=== PATIENT | male | born 1960 | race Caucasian/White ===

== ENCOUNTER 2025-09-19 15:38 | Observation (INO) ==
[2025-09-19 16:09] LABS: Hematocrit (blood only) 46.5 % (42.0-52.0); Hemoglobin 16.2 g/dL (14.0-18.0); Immature Granulocytes # (auto) 0.03 K/uL (0.01-0.20); Immature Granulocytes % (auto) 0.3 %; Mean Corpuscular Hemoglobin 32.1 pg (25.0-34.0); Mean Corpuscular Volume 92.3 fL (80.0-100.0); Platelet Count 281 K/uL (130-400); RDW Standard Deviation 49.2 fL (36.4-46.3); Red Blood Count 5.04 M/uL (4.70-6.10); White Blood Count 10.36 K/ul (4.8-10.8)
[2025-09-19] MEDS: OPTIRAY 320 100ml IV ONE (16:14)
[2025-09-19 16:25] LABS: Alanine Aminotransferase 50.0 U/L (7-52); Albumin Globulin Ratio 1.3 (0.9-2); Albumin Level 4.4 gm/dl (3.4-5.0); Alkaline Phosphatase 53.0 U/L (34-104); Anion Gap 11.0 (3-11); Bilirubin,Total 0.8 mg/dl (0.2-1.0); Blood Urea Nitrogen 13.0 mg/dl (6-23); Calcium 9.8 mg/dl (8.6-10.3); Carbon Dioxide 27.0 mmol/L (21-32); Chloride 97.0 mmol/L (98-107); Creatinine Clr Calc Pharmacy 95.1 ml/min; Globulin 3.5 gm/dl (2.5-4.0); Glucose 105.0 mg/dl (70-99(Fasting)); Potassium 3.6 mmol/L (3.5-5.1); Sodium 135.0 mmol/L (136-145); Total Protein 7.9 gm/dl (6.0-8.3)
--- NOTE | 2025-09-19 16:57 | CT Scan Report ---
EXAMINATION: CT of the abdomen and pelvis performed after the administration of IV contrast TECHNIQUE: Helical CT images from the lung bases through the symphysis pubis were obtained with contrast. Coronal and sagittal reformatted images were generated at a workstation for further assessment. Dose reduction techniques were achieved by using automatic exposure control and/or adjustment of mA and/or kV according to patient size and/or use of iterative reconstruction technique. COMPARISON: None HISTORY: Abdominal pain FINDINGS: Lower chest: No consolidation. No pleural effusion or pneumothorax. Liver: No suspicious liver lesions. Portal veins appear patent. Gallbladder: No gallstones. No evidence of acute cholecystitis. Spleen: Normal size. Pancreas: No suspicious pancreatic lesions. The pancreatic duct is not dilated. Adrenal glands: No adrenal nodules. Kidneys: No hydronephrosis or obstructing renal stones. Simple right renal cysts. There is some scarring at the superior pole of the left kidney. Bladder / Pelvic organs: Unremarkable. Bowel: No bowel obstruction. No abnormal bowel wall thickening. The appendix is unremarkable. Several, nondilated fluid-filled loops of small bowel throughout the left abdomen and lower midline abdomen. Lymph nodes: No retroperitoneal, mesenteric, or pelvic lymphadenopathy. Peritoneum / Retroperitoneum: No free fluid or air within the abdomen. Vessels: No infrarenal aortic aneurysm. Moderate aortoiliac atherosclerosis. Bones and soft tissues: No suspicious lesion in the bones. IMPRESSION: Several nondilated fluid-filled loops of small bowel primarily in the left and lower abdomen, suggesting enteritis. No other acute findings of the abdomen. Electronically signed by Kb Cannon 09-19-2025 4:57 PM
--- NOTE | 2025-09-19 17:11 | CT Scan Report ---
Clinical history: Left-sided pain after fall Technique: Axial computed tomography images were obtained of the chest after the administration of intravenous contrast No prior examination is available for comparison Findings: There is dependent subsegmental atelectasis in both lower lobes. There is mild emphysema. There is no pleural effusion or pneumothorax. There is no sign of pulmonary fibrosis or other diffuse interstitial process. No endobronchial lesion is seen There is no mediastinal, hilar, or axillary adenopathy. The thoracic aorta appears unremarkable with no sign of aneurysm or dissection. There is no pericardial effusion. There is coronary atherosclerosis The visualized upper abdomen appears unremarkable. There are acute nondisplaced fractures of the left posterior eighth and ninth ribs. No focal osseous lesion is evident Impression: 1. Acute fractures of the left eighth and ninth ribs 2. No pneumothorax 3. Mild emphysema ACT 112: Positive. There are findings on this exam that require communication between the performing entity and the patient following Patient Test Result Information Act ([place] ACT 112) guidelines. Electronically signed by Tyler Soto 09-19-2025 5:10 PM
[2025-09-19] MEDS: KETOROLAC TROMETHAMINE 15 MG/ML VIAL IV ONE (18:13)
--- NOTE | 2025-09-19 18:24 | History & Physical Report ---
Date of Service September 19, 2025 Assessment & Plan (1) Rib fractures: (2) Hip pain, acute: (3) HTN (hypertension), benign: (4) Carotid artery stenosis: Plan This patient is a 65-year-old male with a history of HTN, carotid artery stenosis, current smoker, emphysema, multiple sclerosis not on treatment, chronic diarrhea, chronic urinary urgency/frequency/nocturia, who presents after having a mechanical fall the day before admission onto his back. He slipped on the ramp into his house on ice and his feet went up into the air and he landed flat on his back. He did not have a head injury and did not lose consciousness. He had severe pain in his left lateral hip and left side of the chest, and was found to have acute fractures of the left posterior 8th and 9th ribs without pneumothorax but with subsegmental atelectasis in bilateral lower lobes. A CT of the abdomen/pelvis showed several nondilated fluid-filled loops of small bowel throughout the left abdomen and lower mid abdomen but no acute issues at the site of the hip pain. He is having difficulty ambulating due to the left hip pain and splinting secondary to pain from the rib fractures. He is admitted for intractable pain from left-sided rib fractures and left hip pain with ambulatory dysfunction. #Mechanical fall/left sided rib fractures/left hip pain/ambulatory dysfunction- no fracture seen of the left hip or pelvis-likely deep contusion - Admit to medical floor with telemetry due to rib fractures - Incentive spirometry - Pain control with IV Dilaudid, lidocaine patch, Tylenol, Toradol - PT/OT consults - Ice to the area of pain #HTN/ANSHUL-blood pressures elevated on arrival and became lower after receiving IV fentanyl. - Hold home HCTZ and lisinopril for now - Continue home aspirin and Plavix #Current smoker/emphysema-heavy smoking history - Encourage cessation - Nicotine patch can be ordered if needed #Alcohol use disorder-patient reports drinking anywhere from 4 beers to 25 beers every day of the week but denies any history of withdrawal when he stops drinking for more than a few days. -AWSS protocol, Valium as needed orally - Start thiamine 100 mg p.o. once daily, folic acid 1 mg p.o. once daily, and multivitamin 1 tablet p.o. once daily - Encourage cessation #Urinary frequency/nocturia-longstanding problem. He has not really talked to his doctor about this ever - Start tamsulosin - Recommend follow-up with PCP or urology as an outpatient #Chronic diarrhea-longstanding issue, has not had a colonoscopy in about 10 year s. Had liquid stool and possible enteritis seen on CT abdomen/pelvis. Could be related to heavy alcohol use - Recommend outpatient follow-up with GI for colonoscopy - Recommend alcohol cessation - Can trial cholestyramine or fiber-Will discuss with patient #Multiple sclerosis-he has not been on treatment for this in several years and is trying to get in to see a new neurologist. He has chronic lower extremity weakness - PT/OT ordered - Follow-up with neurology as an outpatient DVT prophylaxis-SCDs, Lovenox SQ Disposition-admit to telemetry unit History of Present Illness Chief Complaint: Fall, chest pain, hip pain Primary Care Provider: Curtis Blackburn This patient is a 65-year-old male with a history of HTN, carotid artery stenosis, current smoker, emphysema, multiple sclerosis not on treatment, chronic diarrhea, chronic urinary urgency/frequency/nocturia Roxi, who presents after having a fall yesterday onto his back. He slipped on the ramp into his house on ice and his feet went up into the air and he landed flat on his back. He did not have a head injury and did not lose consciousness. He had severe pain in his left lateral hip and left side of the chest, but was able to get up. After that, he walked 60 [address] to the [id number] next-door to his house and drank 3 or 4 beers. He was able to get back home with severe pain and when he w jovan up this morning, continued to have pain and had his father bring him to the hospital. He was an injury alert in the ED due to the fall and he is on aspirin and Plavix. Since then, he has had left hip pain and left lateral chest wall pain with difficulty taking deep breaths due to pain. In the ED, he had a chest CT which showed acute fractures of the left 8th and 9th ribs without pneumothora x but with subsegmental atelectasis in bilateral lower lobes. A CT of the abdomen/pelvis showed several nondilated fluid-filled loops of small bowel throughout the left abdomen and lower mid abdomen but no acute issues at the site of the hip pain. He was given IV fentanyl, IV Toradol. He is having difficulty ambulating due to the left hip pain and splinting secondary to pain from the rib fractures. He will be admitted for intractable pain from left-sided rib fractures and left hip pain with ambulatory dysfunction. Allergies Allergy/AdvReac Type Severity Reaction Status Date / Time No Known Allergies Allergy Verified 09/19/25 17:52 Home Medications Medication Instructions Recorded Confirmed Type aspirin 81 mg tablet,delayed 81 mg PO QAM 09/19/25 09/19/25 History release clopidogrel 75 mg tablet 75 mg PO QPM 09/19/25 09/19/25 History hydrochlorothiazide 25 mg tablet 25 mg PO QAM 09/19/25 09/19/25 History lisinopril 20 mg tablet 20 mg PO QAM 09/19/25 09/19/25 History Past Med/Surg History Problem List (Updated 09/19/25 @ 19:52 by Chen Aguiar MD) Hip pain, acute Rib fractures Medical History (Updated 09/19/25 @ 19:52 by Chen Aguiar MD) Nocturia Chronic diarrhea Emphysema lung Current smoker Carotid artery stenosis Multiple sclerosis HTN (hypertension), benign Surgical History (Updated 09/19/25 @ 19:53 by Chen Aguiar MD) H/O uvulectomy History of tonsillectomy H/O arthroscopy of knee Family History (Updated 09/19/25 @ 19:53 by Chen Aguiar MD) Father Stroke Social History (Updated 09/19/25 @ 19:55 by Chen Aguiar MD) Smoking Status: Current every day smoker Tobacco Type: Cigarettes and E-cigarettes / Vaping packs per day: 0.5; Cigarettes Per Day: Previously smoked 3 packs/day; Hx Alcohol Use: Yes Alcohol type: beer Alcohol Intake Frequency: 4 or More x per/Week Alcohol Intake Frequency Comment: Drinks 4 to 25 beers per day Hx Substance Use: No Preferred Language: Lao marital status: Current Living Situation: Alone current occupational status: disabled current occupation: Previously worked on the [employer], now applying for disability How many Children do You have: 2 Feels Safe at Home: Yes Review of Systems Review of Systems: All systems reviewed & are unremarkable except as noted in HPI & below No fevers or chills, no chest pain shortness of breath, no nausea or vomiting. Has urinary urgency and frequency and nocturia every day chronically. Has chronic loose stools. No blood in the stool. No recent cold symptoms or cough. Physical Exam Constitutional: WD/WN, vitals as above Eyes: PERRL, conjunctivae normal, anicteric sclerae ENMT: external ear and nose normal, oropharynx normal Neck: trachea midline, no thyromegaly Respiratory: normal respiratory effort; no cough Auscultation: + wheezes (Bilateral); no crackles and no rhonchi Cardiovascular: RRR, no murmur, no edema Chest (Breasts): Chest: normal inspection of chest Gastrointestinal (Abdomen): normal bowel sounds, soft, nontender, no hepatosplenomegaly Musculoskeletal: Extremities: extremities normal to inspection; no cyanosis and no clubbing Positive TTP over left lateral hip and PSIS, full range of motion of left hip, negative pain with logroll, able to flex and extend at the hip Positive TTP over posterior ribs Skin: + rash (Dry skin and some excoriations o n legs bilaterally) Neurologic: moves all extremities and awake; no focal motor deficits Psychiatric: A+Ox3, euthymic affect Lymphatic: no lymphedema Results & Data Results & Data Vital Signs (Past 12 Hours) Vital Signs Temp Pulse Pulse Resp BP BP Pulse Ox 09/19/25 18:00 84 20 96/65 L 98 09/19/25 17:00 68 20 133/89 95 09/19/25 16:30 76 18 157/83 H 97 09/19/25 16:28 75 09/19/25 15:40 36.5 C 102 H 18 174/79 H 99 O2 Del Method 09/19/25 18:00 Room Air 09/19/25 17:00 Room Air 09/19/25 16:30 Room Air 09/19/25 16:28 09/19/25 15:40 Room Air Laboratory Results CBC, CMP reviewed Diagnostic Findings Abdomen/Pelvis CT 09/19/25 15:53 EXAMINATION: CT of the abdomen and pelvis performed after the administration of IV contrast TECHNIQUE: Helical CT images from the lung bases through the symphysis pubis were obtained with contrast. Coronal and sagittal reformatted images were generated at a workstation for further assessment. Dose reduction techniques were achieved by using automatic exposure control and/or adjustment of mA and/or kV according to patient size and/or use of iterative reconstruction technique. COMPARISON: None HISTORY: Abdominal pain FINDINGS: Lower chest: No consolidation. No pleural effusion or pneumothorax. Liver: No suspicious liver lesions. Portal veins appear patent. Gallbladder: No gallstones. No evidence of acute cholecystitis. Spleen: Normal size. Pancreas: No suspicious pancreatic lesions. The pancreatic duct is not dilated. Adrenal glands: No adrenal nodules. Kidneys: No hydronephrosis or obstructing renal stones. Simple right renal cysts. There is some scarring at the superior pole of the left kidney. Bladder / Pelvic organs: Unremarkable. Bowel: No bowel obstruction. No abnormal bowel wall thickening. The appendix is unremarkable. Several, nondilated fluid-filled loops of small bowel throughout the left abdomen and lower midline abdomen. Lymph nodes: No retroperitoneal, mesenteric, or pelvic lymphadenopathy. Peritoneum / Retroperitoneum: No free fluid or air within the abdomen. Vessels: No infrarenal aortic aneurysm. Moderate aortoiliac atherosclerosis. Bones and soft tissues: No suspicious lesion in the bones. IMPRESSION: Several nondilated fluid-filled loops of small bowel primarily in the left and lower abdomen, suggesting enteritis. No other acute findings of the abdomen. Electronically signed by Kb Cannon 09-19-2025 4:[address] 09/19/25 15:53 Clinical history: Left-sided pain after fall Technique: Axial computed tomography images were obtained of the chest after the administration of intravenous contrast No prior examination is available for comparison Findings: There is dependent subsegmental atelectasis in both lower lobes. There is mild emphysema. There is no pleural effusion or pneumothorax. There is no sign of pulmonary fibrosis or other diffuse interstitial process. No endobronchial lesion is seen There is no mediastinal, hilar, or axillary adenopathy. The thoracic aorta appears unremarkable with no sign of aneurysm or dissection. There is no pericardial effusion. There is coronary atherosclerosis The visualized upper abdomen appears unremarkable. There are acute nondisplaced fractures of the left posterior eighth and ninth ribs. No focal osseous lesion is evident Impression: 1. Acute fractures of the left eighth and ninth ribs 2. No pneumothorax 3. Mild emphysema ACT 112: Positive. There are findings on this exam that require communication between the performing entity and the patient following Patient Test Result Information Act ([place] ACT 112) guidelines. Electronically signed by Tyler Soto 09-19-2025 5:10 PM Code Status & VTE Plan Code Status Full code VTE Prophylaxis Plan VTE Prophylaxis will be ordered: Yes PG Care Time/CCT Total # of Minutes Spent Total Time Spent with Patient: Total time spent is greater than 50% in coordination of care (as documented) at patient's floor/unit and/or counseling patient: Coding Level of Care Code 32983 INT INP/OBS CARE 3/75MIN Diagnoses Rib fractures S22.49XA Hip pain, acute M25.559 HTN (hypertension), benign I10 Carotid artery stenosis I65.29
--- NOTE | 2025-09-19 19:27 | Emergency Department Note ---
Impression & Plan Rib fractures, Hip pain, acute ED Provider Note NAME: ALEXANDRA LEDESMA AGE: 65 SEX: M : 1960 ARRIVES VIA: Walk-In INFORMANT: Patient, ED PROVIDER(S): Lavonne Galvan MD CHIEF COMPLAINT: . Fall/injury alert HPI: This is a 65-year-old male presenting for fall/injury alert. Patient is on blood thinners, Plavix. He reports that he fell on ice yesterday and hit the left side of his hip as well as upper chest against the ground but he did not hit his head or LOC. He notes significant pain to his ribs when he breathes on the left side, posteriorly. He reports having difficulty putting weight on his left hip. He reports muscle spasms. No headache, neck pain, confusion, nausea or vomiting. ROS: See above HPI for pertinent positives & negatives. A total of 10 systems reviewed and were otherwise negative. PAST MEDICAL HISTORY: See Below PAST SURGICAL HISTORY: See Below FAMILY HISTORY: See Below SOCIAL HISTORY: See Below HOME MEDICATIONS: See Below ALLERGIES: See Below VITALS: See Below PHYSICAL EXAMINATION: Primary Survey Airway: Intact Breathing: Normal, breath sounds equal bilaterally Circulation: Skin warm, distal pulses 2+ Disability Pupils: Equal and reactive to light GCS: 15, Motor Function: Moves all extremities. Sensory: No deficits Secondary Survey GEN: Well developed and well-nourished HEAD: Normal cephalic atraumatic EYES: Pupils round reactive to light, conjunctiva clear, extraocular movements intact, no raccoons eyes ENT: no tejada's sign, nares patent, oropharynx clear NECK: No JVD, midline trachea, C-collar in place HEART: Regular rate and rhythm LUNGS: Clear to auscultation bilaterally. CHEST: Posterior chest wall tenderness on the left side no bruising/deformity BACK: No obvious midline step-off, tenderness ABD: soft, non-tender, no rebound or guarding, PELVIS: Stable to rock EXT: 2+ global pulses, moving all extremities well, +5/5 muscle strength globally NEURO: CNII-XII grossly intact, no sensory deficits MEDICAL DECISION MAKING: Provider summary this is a 65-year-old male presenting for fall/injury. Will do CT of the chest, abdomen and pelvis due to location of pain. Do not obvious deformity of the left hip/lower extremity. -Primary survey intact -Secondary survey reveals no obvious external injuries. There is tenderness to the left posterior chest wall -CT imaging reveals left 8th/9th rib fractures. Otherwise no other injury noted on CT imaging -Patient only mildly improved after fentanyl -As patient is having exquisite pain to the ribs as well as inability ambulate, will admit to hospital for further pain control - Care discussed with Dr. Aguiar for admission Differential diagnosis: Rib fracture, hip fracture, pelvic ring fracture, sacral fracture, splenic laceration Diagnostics interpreted by me: ECG: None Cardiac Monitoring: An order was placed for continuous cardiac monitoring. The monitor shows a rate of 69 sinus rhythm. Past Med/Surg History Problem List (Updated 09/19/25 @ 23:30 by Lavonne Galvan MD) Hip pain, acute (Acute) Rib fractures (Acute) Medical History (Updated 09/19/25 @ 23:30 by Lavonne Galvan MD) Nocturia Chronic diarrhea Emphysema lung Current smoker Carotid artery stenosis Multiple sclerosis HTN (hypertension), benign Surgical History (Updated 09/19/25 @ 19:53 by Chen Aguiar MD) H/O uvulectomy History of tonsillectomy H/O arthroscopy of knee Family History (Updated 09/19/25 @ 19:53 by Chen Aguiar MD) Father Stroke Social History (Updated 09/19/25 @ 19:55 by Chen Aguiar MD) Smoking Status: Current every day smoker Tobacco Type: Cigarettes and E-cigarettes / Vaping packs per day: 0.5; Cigarettes Per Day: 1/2 pack a day; Hx Alcohol Use: Yes Alcohol type: beer Alcohol Intake Frequency: 4 or More x per/Week Alcohol Intake Frequency Comment: Drinks 4 to 25 beers per day Hx Substance Use: No Preferred Language: Scottish 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 Beliefs That Will Affect Care: None marital status: Current Living Situation: Alone current occupational status: disabled current occupation: Previously worked on the [employer], now applying for disability How many Children do You have: 2 Feels Safe at Home: Yes Assistive Devices: None Allergies Allergies Allergy/AdvReac Type Severity Reaction Status Date / Time No Known Allergies Allergy Verified 09/19/25 17:52 Home Meds Home Medications Medication Instructions Recorded Confirmed aspirin 81 mg tablet,delayed 81 mg PO QAM 09/19/25 09/19/25 release clopidogrel 75 mg tablet 75 mg PO QPM 09/19/25 09/19/25 hydrochlorothiazide 25 mg tablet 25 mg PO QAM 09/19/25 09/19/25 lisinopril 20 mg tablet 20 mg PO QAM 09/19/25 09/19/25 Results & Data (ED) Vital Signs Vital Signs - 24 hr 09/19/25 15:40 09/19/25 16:28 09/19/25 16:30 Temperature 36.5 C Temperature Source Temporal Artery Scan Pulse Rate 102 H 75 Pulse Rate [Finger] 76 Pulse Rate from SpO2 Sensor Respiratory Rate 18 18 Respiratory Effort / Characteristics Non-Labored Spontaneous Respiratory Depth Normal Blood Pressure 174/79 H Blood Pressure [Right Arm] 157/83 H Blood Pressure Mean 110 Blood Pressure Mean [Right Arm] 107 Blood Pressure Position Sitting Pulse Oximetry 99 97 Oxygen Delivery Method Room Air Room Air Sepsis Recent Fever Within 48 Hours No Sepsis New/Unexplained Change in Mental Status No Sepsis Action Taken by Nursing No Action Required 09/19/25 17:00 09/19/25 17:42 09/19/25 17:51 Temperature Temperature Source Pulse Rate 78 77 Pulse Rate [Finger] 68 Pulse Rate from SpO2 Sensor 77 81 Respiratory Rate 20 19 20 Respiratory Effort / Characteristics Respiratory Depth Blood Pressure Blood Pressure [Right Arm] 133/89 Blood Pressure Mean Blood Pressure Mean [Right Arm] 103 Blood Pressure Position Pulse Oximetry 95 96 97 Oxygen Delivery Method Room Air Sepsis Recent Fever Within 48 Hours Sepsis New/Unexplained Change in Mental Status Sepsis Action Taken by Nursing 09/19/25 18:00 09/19/25 18:00 09/19/25 18:00 Temperature Temperature Source Pulse Rate 86 Pulse Rate [Finger] 84 Pulse Rate from SpO2 Sensor 83 Respiratory Rate 20 16 Respiratory Effort / Characteristics Respiratory Depth Blood Pressure 96/65 L Blood Pressure [Right Arm] 96/65 L Blood Pressure Mean 68 Blood Pressure Mean [Right Arm] 75 Blood Pressure Position Pulse Oximetry 98 97 Oxygen Delivery Method Room Air Sepsis Recent Fever Within 48 Hours Sepsis New/Unexplained Change in Mental Status Sepsis Action Taken by Nursing 09/19/25 18:00 09/19/25 18:00 09/19/25 18:00 Temperature Temperature Source Pulse Rate Pulse Rate [Finger] Pulse Rate from SpO2 Sensor Respiratory Rate Respiratory Effort / Characteristics Respiratory Depth Blood Pressure 96/65 L 96/65 L 96/65 L Blood Pressure [Right Arm] Blood Pressure Mean 68 68 68 Blood Pressure Mean [Right Arm] Blood Pressure Position Pulse Oximetry Oxygen Delivery Method Sepsis Recent Fever Within 48 Hours Sepsis New/Unexplained Change in Mental Status Sepsis Action Taken by Nursing 09/19/25 18:00 09/19/25 18:12 09/19/25 18:21 Temperature Temperature Source Pulse Rate 73 77 Pulse Rate [Finger] Pulse Rate from SpO2 Sensor 73 77 Respiratory Rate 18 22 Respiratory Effort / Characteristics Respiratory Depth Blood Pressure 96/65 L Blood Pressure [Right Arm] Blood Pressure Mean 68 Blood Pressure Mean [Right Arm] Blood Pressure Position Pulse Oximetry 96 95 Oxygen Delivery Method Sepsis Recent Fever Within 48 Hours Sepsis New/Unexplained Change in Mental Status Sepsis Action Taken by Nursing 09/19/25 18:27 09/19/25 18:30 09/19/25 18:30 Temperature Temperature Source Pulse Rate Pulse Rate [Finger] Pulse Rate from SpO2 Sensor 104 H Respiratory Rate Respiratory Effort / Characteristics Respiratory Depth Blood Pressure 173/88 H 173/88 H Blood Pressure [Right Arm] Blood Pressure Mean 114 114 Blood Pressure Mean [Right Arm] Blood Pressure Position Pulse Oximetry 72 L Oxygen Delivery Method Sepsis Recent Fever Within 48 Hours Sepsis New/Unexplained Change in Mental Status Sepsis Action Taken by Nursing 09/19/25 18:30 09/19/25 18:30 09/19/25 18:30 Temperature Temperature Source Pulse Rate Pulse Rate [Finger] Pulse Rate from SpO2 Sensor Respiratory Rate Respiratory Effort / Characteristics Respiratory Depth Blood Pressure 173/88 H 173/88 H 173/88 H Blood Pressure [Right Arm] Blood Pressure Mean 114 114 114 Blood Pressure Mean [Right Arm] Blood Pressure Position Pulse Oximetry Oxygen Delivery Method Sepsis Recent Fever Within 48 Hours Sepsis New/Unexplained Change in Mental Status Sepsis Action Taken by Nursing 09/19/25 18:33 Temperature Temperature Source Pulse Rate Pulse Rate [Finger] Pulse Rate from SpO2 Sensor 73 Respiratory Rate Respiratory Effort / Characteristics Respiratory Depth Blood Pressure Blood Pressure [Right Arm] Blood Pressure Mean Blood Pressure Mean [Right Arm] Blood Pressure Position Pulse Oximetry 97 Oxygen Delivery Method Sepsis Recent Fever Within 48 Hours Sepsis New/Unexplained Change in Mental Status Sepsis Action Taken by Nursing Laboratory Data 09/19/25 15:54 09/19/25 15:54 Lab Results 09/19/25 09/19/25 Range/Units 15:54 15:59 WBC 10.36 (4.8-10.8) K/ul RBC 5.04 (4.70-6.10) M/uL Hgb 16.2 (14.0-18.0) g/dL POC Hgb 17.3 (14.0-18.0) g/dl Hct 46.5 (42.0-52.0) % POC Hct 51 (42-52) % MCV 92.3 (80.0-100.0) fL MCH 32.1 (25.0-34.0) pg MCHC 34.8 (32.0-36.0) g/dL RDW Std Deviation 49.2 H (36.4-46.3) fL RDW Coeff of Dianna 14.6 H (11.5-14.5) % Plt Count 281 (130-400) K/uL MPV 10.1 (9.4-12.4) fL Immature Gran % (Auto) 0.3 % Neut % (Auto) 65.3 % Lymph % (Auto) 19.2 % Archuleta % (Auto) 10.7 % Eos % (Auto) 3.3 % Baso % (Auto) 1.2 % Neut # (Auto) 6.77 H (1.40-6.50) K/uL Lymph # (Auto) 1.99 (1.20-3.40) K/uL Archuleta # (Auto) 1.11 H (0.11-0.59) K/uL Eos # (Auto) 0.34 (0.00-0.50) K/uL Baso # (Auto) 0.12 (0.00-0.20) K/uL Immature Gran # (Auto) 0.03 (0.01-0.20) K/uL POC Sodium 136 (135-144) mmol/L Sodium 135 L (136-145) mmol/L POC Potassium 3.5 (3.3-5.0) mmol/L Potassium 3.6 (3.5-5.1) mmol/L POC Chloride 96 L (101-112) mmol/L Chloride 97 L (98-107) mmol/L Carbon Dioxide 27 (21-32) mmol/L POC Total CO2 24 (24-31) mmol/L Anion Gap 11 (3-11) POC Anion Gap 21.0 (16-25) mmol/L POC BUN 15 (7-18) mg/dl BUN 13 (6-23) mg/dl Creatinine 0.95 (0.6-1.4) mg/dl POC Creatinine 1.0 (0.6-1.3) mg/dl Est Cr Clr Drug Dosing 95.1 ml/min eGFR 89.94 BUN/Creatinine Ratio 13.7 (10-20) Glucose 105 H (70-99(Fasting)) mg/dl POC Glucose (other) 101 H (70-99) mg/dl Calcium 9.8 (8.6-10.3) mg/dl POC Ioniz Calcium Nikkie 1.15 (1.12-1.32) mmol/l Total Bilirubin 0.8 (0.2-1.0) mg/dl AST 37 (13-39) U/L ALT 50 (7-52) U/L Alkaline Phosphatase 53 (34-104) U/L Total Protein 7.9 (6.0-8.3) gm/dl Albumin 4.4 (3.4-5.0) gm/dl Globulin 3.5 (2.5-4.0) gm/dl Albumin/Globulin Ratio 1.3 (0.9-2) Administered Medications Clopidogrel Bisulfate (Clopidogrel Bisulfate 75 Mg Tab) 75 mg PO QPM YULISA Stop: 10/19/25 21:51 Last Admin: 09/19/25 23:07 Dose: 75 mg Documented By: TLM Enoxaparin Sodium (Enoxaparin Inj 40 Mg/0.4 Ml Syr) 40 mg SQ Q24H YULISA Stop: 10/19/25 21:59 Last Admin: 09/19/25 23:08 Dose: Not Given Documented By: TLM Ketorolac Tromethamine (Ketorolac Tromethamine 15 Mg/Ml Vial) 10 mg IV Q6H PRN PRN Reason: Pain Stop: 09/22/25 21:51 Last Admin: 09/19/25 23:10 Dose: 10 mg Documented By: TLM Tamsulosin HCl (Tamsulosin Hcl 0.4 Mg Cap) 0.4 mg PO HS YULISA Stop: 10/19/25 21:51 Last Admin: 09/19/25 23:07 Dose: 0.4 mg Documented By: TLM Discontinued Medications Acetaminophen (Acetaminophen 325 Mg Tab) 650 mg PO NOW STA Stop: 09/19/25 21:53 Last Admin: 09/19/25 23:09 Dose: Not Given Documented By: TLM Fentanyl Citrate (Fentanyl Citrate Pf 100 Mcg/2 Ml Vial) 50 mcg IV NOW STA Stop: 09/19/25 16:09 Last Admin: 09/19/25 16:23 Dose: 50 mcg Documented By: SW Fentanyl Citrate (Fentanyl Citrate Pf 100 Mcg/2 Ml Vial) 50 mcg IV NOW STA Stop: 09/19/25 18:08 Last Admin: 09/19/25 18:13 Dose: 50 mcg Documented By: SW Ioversol (Optiray 320 100ml) 90 ml IV ONCE ONE Stop: 09/19/25 16:14 Last Admin: 09/19/25 16:14 Dose: 90 ml Documented By: JOHN Ketorolac Tromethamine (Ketorolac Tromethamine 15 Mg/Ml Vial) 15 mg IV NOW ONE Stop: 09/19/25 18:08 Last Admin: 09/19/25 18:13 Dose: 15 mg Documented By: SW Lidocaine (Lidocaine 5% 1 Patch) 2 patch TD NOW STA Stop: 09/19/25 19:43 Last Admin: 09/19/25 21:02 Dose: 2 patch Documented By: BS Imaging Data Radiologist's Impression: Abdomen/Pelvis CT 09/19/25 15:53 EXAMINATION: CT of the abdomen and pelvis performed after the administration of IV contrast TECHNIQUE: Helical CT images from the lung bases through the symphysis pubis were obtained with contrast. Coronal and sagittal reformatted images were generated at a workstation for further assessment. Dose reduction techniques were achieved by using automatic exposure control and/or adjustment of mA and/or kV according to patient size and/or use of iterative reconstruction technique. COMPARISON: None HISTORY: Abdominal pain FINDINGS: Lower chest: No consolidation. No pleural effusion or pneumothorax. Liver: No suspicious liver lesions. Portal veins appear patent. Gallbladder: No gallstones. No evidence of acute cholecystitis. Spleen: Normal size. Pancreas: No suspicious pancreatic lesions. The pancreatic duct is not dilated. Adrenal glands: No adrenal nodules. Kidneys: No hydronephrosis or obstructing renal stones. Simple right renal cysts. There is some scarring at the superior pole of the left kidney. Bladder / Pelvic organs: Unremarkable. Bowel: No bowel obstruction. No abnormal bowel wall thickening. The appendix is unremarkable. Several, nondilated fluid-filled loops of small bowel throughout the left abdomen and lower midline abdomen. Lymph nodes: No retroperitoneal, mesenteric, or pelvic lymphadenopathy. Peritoneum / Retroperitoneum: No free fluid or air within the abdomen. Vessels: No infrarenal aortic aneurysm. Moderate aortoiliac atherosclerosis. Bones and soft tissues: No suspicious lesion in the bones. IMPRESSION: Several nondilated fluid-filled loops of small bowel primarily in the left and lower abdomen, suggesting enteritis. No other acute findings of the abdomen. Electronically signed by Kb Cannon 09-19-2025 4:[address] 09/19/25 15:53 Clinical history: Left-sided pain after fall Technique: Axial computed tomography images were obtained of the chest after the administration of intravenous contrast No prior examination is available for comparison Findings: There is dependent subsegmental atelectasis in both lower lobes. There is mild emphysema. There is no pleural effusion or pneumothorax. There is no sign of pulmonary fibrosis or other diffuse interstitial process. No endobronchial lesion is seen There is no mediastinal, hilar, or axillary adenopathy. The thoracic aorta appears unremarkable with no sign of aneurysm or dissection. There is no pericardial effusion. There is coronary atherosclerosis The visualized upper abdomen appears unremarkable. There are acute nondisplaced fractures of the left posterior eighth and ninth ribs. No focal osseous lesion is evident Impression: 1. Acute fractures of the left eighth and ninth ribs 2. No pneumothorax 3. Mild emphysema ACT 112: Positive. There are findings on this exam that require communication between the performing entity and the patient following Patient Test Result Information Act ([place] ACT 112) guidelines. Electronically signed by Tyler Soto 09-19-2025 5:10 PM Discharge Plan Visit Data Chief Complaint: Fall Stated Complaint: FALL, ON BT ED Provider: Lavonne Galvan Discharge Problem: Rib fractures, Hip pain, acute Patient Disposition: Admitted As Inpatient Condition: Fair Discharge Instructions Interventions: ED Discharge Assessment Last Done: 09/19/25 20:49
[2025-09-19] MEDS: LIDOCAINE 5% 1 PATCH TD STA (21:02)
[2025-09-19] MEDS ORDERED: NALOXONE HCL 0.4 MG/1 ML VIAL/CARP IV PRN (21:52)
[2025-09-19] MEDS ORDERED: HYDROmorphone INJ 0.5 MG/0.5 ML SYR IV PRN (21:52)
[2025-09-19] MEDS ORDERED: ALBUT/IPRATROP 3MG/0.5MG NEB 3 ML VIAL NEB PRN (21:52)
[2025-09-19] MEDS ORDERED: ONDANSETRON INJ 2 MG/ML 2 ML VIAL IV PRN (21:52)
[2025-09-19] MEDS ORDERED: POLYETHYLENE (MIRALAX) 17 GM PACK PO PRN (21:52)
[2025-09-19] MEDS: TAMSULOSIN HCL 0.4 MG CAP PO SCH (23:07)
[2025-09-19] MEDS: CLOPIDOGREL BISULFATE 75 MG TAB PO SCH (23:07)
[2025-09-19] MEDS: ENOXAPARIN INJ 40 MG/0.4 ML SYR SQ SCH (23:08)
[2025-09-19] MEDS: ACETAMINOPHEN 325 MG TAB PO STA (23:09)
[2025-09-19] MEDS: KETOROLAC TROMETHAMINE 15 MG/ML VIAL IV PRN (23:10)
[2025-09-20] MEDS ORDERED: ACETAMINOPHEN 325 MG TAB PO PRN
[2025-09-20] MEDS: MAGNESIUM SULFATE / D5W 1 GM/100 ML BAG IV SCH (03:13)
[2025-09-20 05:07] LABS: Hematocrit (blood only) 42.1 % (42.0-52.0); Hemoglobin 14.9 g/dL (14.0-18.0); Immature Granulocytes # (auto) 0.03 K/uL (0.01-0.20); Immature Granulocytes % (auto) 0.4 %; Mean Corpuscular Hemoglobin 32.3 pg (25.0-34.0); Mean Corpuscular Volume 91.1 fL (80.0-100.0); Platelet Count 223 K/uL (130-400); RDW Standard Deviation 47.7 fL (36.4-46.3); Red Blood Count 4.62 M/uL (4.70-6.10); White Blood Count 8.26 K/ul (4.8-10.8)
[2025-09-20 05:19] LABS: Anion Gap 10.0 (3-11); Blood Urea Nitrogen 18.0 mg/dl (6-23); Calcium 9.5 mg/dl (8.6-10.3); Carbon Dioxide 25.0 mmol/L (21-32); Chloride 100.0 mmol/L (98-107); Creatinine Clr Calc Pharmacy 94.1 ml/min; Glucose 105.0 mg/dl (70-99(Fasting)); Magnesium 2.4 mg/dl (1.7-2.4); Potassium 3.6 mmol/L (3.5-5.1); Sodium 135.0 mmol/L (136-145)
[2025-09-20] MEDS ORDERED: REMOVE LIDODERM PATCH SCH (09:00)
[2025-09-20] MEDS: MULTIVITAMIN TAB PO SCH (09:13)
[2025-09-20] MEDS: THIAMINE HCL 100 MG TAB PO SCH (09:13)
[2025-09-20] MEDS: FOLIC ACID 1 MG TAB PO SCH (09:13)
[2025-09-20] MEDS: REMOVE LIDODERM PATCH SCH ×2 (09:13→21:23)
[2025-09-20] MEDS: LIDOCAINE 5% 1 PATCH TD SCH (09:13)
[2025-09-20] MEDS: ASPIRIN 81 MG ECTAB PO SCH (09:13)
[2025-09-20] MEDS ORDERED: LOPERAMIDE HCL 2 MG CAP PO PRN (12:10)
[2025-09-20] MEDS: HYDROmorphone INJ 1 MG/ML SYRINGE IV PRN (12:10)
--- NOTE | 2025-09-20 12:10 | Hospitalist Progress Note ---
Date of Service September 20, 2025 Assessment & Plan (1) Rib fractures: (2) Hip pain, acute: (3) UTI (urinary tract infection): (4) HTN (hypertension), benign: Plan This patient is a 65-year-old male with a history of HTN, carotid artery stenosis, current smoker, emphysema, multiple sclerosis not on treatment, chronic diarrhea, chronic urinary urgency/frequency/nocturia, who presents after having a mechanical fall the day before admission onto his back. He slipped on the ramp into his house on ice and his feet went up into the air and he landed flat on his back. He did not have a head injury and did not lose consciousness. He had severe pain in his left lateral hip and left side of the chest, and was found to have acute fractures of the left posterior 8th and 9th ribs without pneumothorax but with subsegmental atelectasis in bilateral lower lobes. A CT of the abdomen/pelvis showed several nondilated fluid-filled loops of small bowel throughout the left abdomen and lower mid abdomen but no acute issues at the site of the hip pain. He is having difficulty ambulating due to the left hip pain and splinting secondary to pain from the rib fractures. He is admitted for intractable pain from left-sided rib fractures and left hip pain with ambulatory dysfunction. He was also found to have a UTI. #Mechanical fall/left sided rib fractures/left hip pain/ambulatory dysfunction- no fracture seen of the left hip or pelvis-likely deep contusion - Admit to medical floor with telemetry due to rib fractures - Incentive spirometry - Pain control with IV Dilaudid, lidocaine patch, Tylenol, Toradol - PT/OT consults - Ice to the area of pain #UTI/Urinary frequency/nocturia-the nocturia and urinary frequency is a longstanding problem. His urine smells very foul. He has not really talked to his doctor about this ever. UA checked on 09/20 and is grossly abnormal for infection. - Start ceftriaxone - Follow urine culture - Start tamsulosin - Recommend follow-up with PCP or urology as an outpatient #HTN/ANSHUL-blood pressures elevated on arrival and became lower after receiving IV fentanyl. Blood pressures are now normalized -Continue to hold home HCTZ and lisinopril for now - Continue home aspirin and Plavix #Current smoker/emphysema-heavy smoking history - Encourage cessation - Nicotine patch can be ordered if needed #Alcohol use disorder-patient reports drinking anywhere from 4 beers to 25 beers every day of the week but denies any history of withdrawal when he stops drinking for more than a few days. No evidence of withdrawal at this time -AWSS protocol, Valium as needed orally -Continue thiamine 100 mg p.o. once daily, folic acid 1 mg p.o. once daily, and multivitamin 1 tablet p.o. once daily - Encourage cessation but he declines to do so-he does not feel that this is a problem #Chronic diarrhea-longstanding issue, has not had a colonoscopy in about 10 years. Had liquid stool and possible enteritis seen on CT abdomen/pelvis. Could be related to heavy alcohol use - Recommend outpatient follow-up with GI for colonoscopy - Recommend alcohol cessation -Trial of Imodium ordered #Multiple sclerosis-he has not been on treatment for this in several years and is trying to get in to see a new neurologist. He has chronic lower extremity weakness - PT/OT ordered - Follow-up with neurology as an outpatient DVT prophylaxis-SCDs, Lovenox SQ Disposition-continued stay on telemetry unit, discharge to home in 1-2 days if pain control improved Admission and Anticipated Discharge Date Admission Date: September 19, 2025 Subjective Patient reports ongoing pain in the left hip and in the left ribs but he was able to walk with a walker to and from the bathroom several times today. He is urinating but less frequently since starting Flomax and his urine is very foul- smelling. He feels that his ambulation is just about at his baseline except he does not normally use a walker at home. He does not want to attend rehab. Telemetry with normal sinus rhythm with rates in the 60s to 80s Physical Exam Constitutional: WD/WN, vitals as above Neck: trachea midline, no thyromegaly Respiratory: normal respiratory effort; no cough Auscultation: no crackles and no rhonchi Cardiovascular: RRR, no murmur, no edema Chest (Breasts): Chest: normal inspection of chest Gastrointestinal (Abdomen): normal bowel sounds, soft, nontender, no hepatosplenomegaly Musculoskeletal: Extremities: extremities normal to inspection; no cyanosis and no clubbing Skin: + rash (Dry skin and some excoriations o n legs bilaterally) Neurologic: moves all extremities and awake; no focal motor deficits Psychiatric: A+Ox3, euthymic affect Lymphatic: no lymphedema Results & Data Results & Data Vital Signs (Past 12 Hours) Vital Signs Temp Pulse Pulse Resp BP Pulse Ox O2 Del Method 09/20/25 11:45 36.7 C 77 18 162/92 H 97 Room Air 09/20/25 08:30 36.5 C 63 18 143/77 H 95 Room Air 09/20/25 08:00 Room Air 09/20/25 07:23 67 09/20/25 03:46 36.8 C 77 18 122/74 94 Room Air Laboratory Results CBC, BMP, magnesium, UA reviewed PG Care Time/CCT Total # of Minutes Spent Total Time Spent with Patient: Total time spent is greater than 50% in coordination of care (as documented) at patient's floor/unit and/or counseling patient: Coding Level of Care Code 35390 SUB INP/OBS CARE 2/35MIN Diagnoses Rib fractures S22.49XA Hip pain, acute M25.559 UTI (urinary tract infection) N39.0 HTN (hypertension), benign I10
[2025-09-20] MEDS: LOPERAMIDE HCL 2 MG CAP PO STA (12:26)
[2025-09-20 15:37] LABS: Appearance Urine Cloudy (Clear); Bacteria Urine Automated 4+ (None Seen); Epithelial Cell Urine Auto 0-2 /hpf (0-2); Glucose Urine UA Negative (Negative); RBC Urine Automated >20 /hpf (0-2); WBC Urine Automated >50 /hpf (0-5)
[2025-09-20] MEDS: cefTRIAXone SODIUM 2,000 MG/50 ML BAG IV SCH (18:44)
[2025-09-21 06:50] LABS: Hematocrit (blood only) 42.4 % (42.0-52.0); Hemoglobin 14.8 g/dL (14.0-18.0); Immature Granulocytes # (auto) 0.02 K/uL (0.01-0.20); Immature Granulocytes % (auto) 0.2 %; Mean Corpuscular Hemoglobin 32.2 pg (25.0-34.0); Mean Corpuscular Volume 92.2 fL (80.0-100.0); Platelet Count 241 K/uL (130-400); RDW Standard Deviation 47.9 fL (36.4-46.3); Red Blood Count 4.60 M/uL (4.70-6.10); White Blood Count 8.06 K/ul (4.8-10.8)
[2025-09-21 07:13] LABS: Anion Gap 9.0 (3-11); Blood Urea Nitrogen 20.0 mg/dl (6-23); Calcium 9.2 mg/dl (8.6-10.3); Carbon Dioxide 27.0 mmol/L (21-32); Chloride 101.0 mmol/L (98-107); Creatinine Clr Calc Pharmacy 83.7 ml/min; Glucose 99.0 mg/dl (70-99(Fasting)); Potassium 4.0 mmol/L (3.5-5.1); Sodium 137.0 mmol/L (136-145)
[2025-09-21 07:44] VITALS: RESP 20; O2SAT 94
[2025-09-21 10:57] VITALS: BP 129/79; PULSE 58; TEMP 97.7
--- NOTE | 2025-09-21 11:30 | Discharge Summary ---
Discharge Summary Date of Service September 21, 2025 Principal Dx & Hospital Course #1 = Principal Diagnosis (1) Rib fractures: (2) Hip pain, acute: (3) UTI (urinary tract infection): (4) HTN (hypertension), benign: Plan This patient is a 65-year-old male with a history of HTN, carotid artery stenosis, current smoker, emphysema, multiple sclerosis not on treatment, chronic diarrhea, chronic urinary urgency/frequency/nocturia, who presents after having a mechanical fall the day before admission onto his back. He slipped on the ramp into his house on ice and his feet went up into the air and he landed flat on his back. He did not have a head injury and did not lose consciousness. He had severe pain in his left lateral hip and left side of the chest, and was found to have acute fractures of the left posterior 8th and 9th ribs without pneumothorax but with subsegmental atelectasis in bilateral lower lobes. A CT of the abdomen/pelvis showed several nondilated fluid-filled loops of small bowel throughout the left abdomen and lower mid abdomen but no acute issues at the site of the hip pain. He is having difficulty ambulating due to the left hip pain and splinting secondary to pain from the rib fractures. He is admitted for intractable pain from left-sided rib fractures and left hip pain with ambulatory dysfunction. He was also found to have a UTI. #Mechanical fall/left sided rib fractures/left hip pain/ambulatory dysfunction- no fracture seen of the left hip or pelvis-likely deep contusion. He reports at least a year of left hip pain prior to this at the same spot. - Incentive spirometry encouraged but pt refused - Pain control with IV Dilaudid, lidocaine patch, Tylenol, Toradol-he took minimal meds and will go home with po APAP and ibuprofen prn - PT/OT consults recommend rehab but pt declines-no home health either as he doesn't plan on being homebound - Ice to the area of pain was given -advised f/u with Orthopedic Surgery as outpt for chronic left hip pain-could be from lumbar spine? He will likely need MRI spine and brain when he sees Neuro anyway for MS -gave wheeled waker to take home for gait assistance #UTI/Urinary frequency/nocturia-the nocturia and urinary frequency is a longstanding problem. His urine smells very foul. He has not really talked to his doctor about this ever. UA checked on 09/20 and is grossly abnormal for infection. Urine cx pending at time of discharge but pt felt much improved with his urinary issues after one dose of IV ceftriaxone - received one dose IV ceftriaxone and dc to home on cefpodoxime 200mg po bid x 6 more days - Follow urine culture after discharge - Started tamsulosin - Recommend follow-up with PCP or urology as an outpatient #HTN/ANSHUL-blood pressures elevated on arrival and became lower after receiving IV fentanyl. Blood pressures are now normalized -held home HCTZ and lisinopril on admission but can resume on discharge - Continue home aspirin and Plavix #Current smoker/emphysema-heavy smoking history - Encourage cessation #Alcohol use disorder-patient reports drinking anywhere from 4 beers to 25 beers every day of the week but denies any history of withdrawal when he stops drinking for more than a few days. No evidence of withdrawal at this time -Continue thiamine 100 mg p.o. once daily, folic acid 1 mg p.o. once daily, and multivitamin 1 tablet p.o. once daily - Encourage cessation but he declines to do so-he does not feel that this is a problem #Chronic diarrhea-longstanding issue, has not had a colonoscopy in about 10 years. Had liquid stool and possible enteritis seen on CT abdomen/pelvis. Could be related to heavy alcohol use - Recommend outpatient follow-up with GI for colonoscopy - Recommend alcohol cessation -Trial of Imodium ordered #Multiple sclerosis-he has not been on treatment for this in several years and is trying to get in to see a new neurologist. He has chronic lower extremity weakness - PT/OT ordered - Follow-up with neurology as an outpatient-I have asked our Nurse Navigator to assist with getting him in to see our Neurologist at [facility] DVT prophylaxis-SCDs, Lovenox SQ Disposition-dc to home Notes For Next Care Provider Medication Changes From Visit see med list Admission HPI Per Admitting Provider This patient is a 65-year-old male with a history of HTN, carotid artery stenosis, current smoker, emphysema, multiple sclerosis not on treatment, chronic diarrhea, chronic urinary urgency/frequency/nocturia Roxi, who presents after having a fall yesterday onto his back. He slipped on the ramp into his house on ice and his feet went up into the air and he landed flat on his back. He did not have a head injury and did not lose consciousness. He had severe pain in his left lateral hip and left side of the chest, but was able to get up. After that, he walked 60 feet to the [employer] next-door to his house and drank 3 or 4 beers. He was able to get back home with severe pain and when he woke up this morning, continued to have pain and had his father bring him to the hospital. He was an injury alert in the ED due to the fall and he is on aspirin and Plavix. Since then, he has had left hip pain and left lateral chest wall pain with difficulty taking deep breaths due to pain. In the ED, he had a chest CT which showed acute fractures of the left 8th and 9th ribs without pneumothorax but with subsegmental atelectasis in bilateral lower lobes. A CT of the abdomen/pelvis showed several nondilated fluid-filled loops of small bowel throughout the left abdomen and lower mid abdomen but no acute issues at the site of the hip pain. He was given IV fentanyl, IV Toradol. He is having difficulty ambulating due to the left hip pain and splinting secondary to pain from the rib fractures. He will be admitted for intractable pain from left-sided rib fractures and left hip pain with ambulatory dysfunction. Discharge Exam Constitutional WD/WN, vitals as above Neck trachea midline, no thyromegaly Respiratory normal respiratory effort; no cough Auscultation: no crackles and no rhonchi Cardiovascular RRR, no murmur, no edema Chest (Breasts) Chest: normal inspection of chest Gastrointestinal (Abdomen) normal bowel sounds, soft, nontender, no hepatosplenomegaly Musculoskeletal Extremities: extremities normal to inspection; no cyanosis and no clubbing Skin + rash (Dry skin and some excoriations on legs bilaterally) Neurologic moves all extremities and awake; no focal motor deficits Psychiatric A+Ox3, euthymic affect Lymphatic no lymphedema Discharge Plan Discharge Items Patient Disposition: Home - Self-Care Reason For Visit: FALL, RIB FRACTURES Discharge Diagnosis: Fall Rib fractures-left 8-9th ribs Left hip contusion UTI Condition on Discharge: Fair Activity: As commented below Lifting: Gradually increase as tolerated Bathing: No limitations Exercise/Sports: Gradually increase as tolerated Exercise Comment: with walker Non-emergency contact: Primary Care Provider Call non-emergency contact if: you have any medication questions, your symptoms worsen and your pain is not controlled Follow-up/Referrals: Curtis Blackburn [Primary Care Provider] - (Follow up within 1-2 weeks) Diet: Regular Addtl Attending Provider Instructions: Please finish out the course of antibiotics for your urine infection with cefpodoxime twice a day for 6 more days. You were started on a medication for enlarged prostate called tamsulosin. This should help decrease the frequency that you urinate and help you empty your bladder more completely. For your rib fractures and hip pain, you can take Tylenol or ibuprofen as needed for pain and use the incentive spirometer to prevent pneumonia. It is important that you cut down on the amount of beer that you drink on a daily basis to no more than 3-4 beers daily. It is important to take vitamins such as thiamine, folic acid, and a multivitamin when you drink alcohol on a regular basis to keep your body functioning normally. These medications are all over the counter. Addtl Front End Developer Designer Provider Instructions: CT Abdomen/Pelvis: EXAMINATION: CT of the abdomen and pelvis performed after the administration of IV contrast TECHNIQUE: Helical CT images from the lung bases through the symphysis pubis were obtained with contrast. Coronal and sagittal reformatted images were generated at a workstation for further assessment. Dose reduction techniques were achieved by using automatic exposure control and/or adjustment of mA and/or kV according to patient size and/or use of iterative reconstruction technique. COMPARISON: None HISTORY: Abdominal pain FINDINGS: Lower chest: No consolidation. No pleural effusion or pneumothorax. Liver: No suspicious liver lesions. Portal veins appear patent. Gallbladder: No gallstones. No evidence of acute cholecystitis. Spleen: Normal size. Pancreas: No suspicious pancreatic lesions. The pancreatic duct is not dilated. Adrenal glands: No adrenal nodules. Kidneys: No hydronephrosis or obstructing renal stones. Simple right renal cysts. There is some scarring at the superior pole of the left kidney. Bladder / Pelvic organs: Unremarkable. Bowel: No bowel obstruction. No abnormal bowel wall thickening. The appendix is unremarkable. Several, nondilated fluid-filled loops of small bowel throughout the left abdomen and lower midline abdomen. Lymph nodes: No retroperitoneal, mesenteric, or pelvic lymphadenopathy. Peritoneum / Retroperitoneum: No free fluid or air within the abdomen. Vessels: No infrarenal aortic aneurysm. Moderate aortoiliac atherosclerosis. Bones and soft tissues: No suspicious lesion in the bones. IMPRESSION: Several nondilated fluid-filled loops of small bowel primarily in the left and lower abdomen, suggesting enteritis. No other acute findings of the abdomen. Electronically signed by Kb Cannon 09-19-2025 4:[address] Chest: Clinical history: Left-sided pain after fall Technique: Axial computed tomography images were obtained of the chest after the administration of intravenous contrast No prior examination is available for comparison Findings: There is dependent subsegmental atelectasis in both lower lobes. There is mild emphysema. There is no pleural effusion or pneumothorax. There is no sign of pulmonary fibrosis or other diffuse interstitial process. No endobronchial lesion is seen There is no mediastinal, hilar, or axillary adenopathy. The thoracic aorta appears unremarkable with no sign of aneurysm or dissection. There is no pericardial effusion. There is coronary atherosclerosis The visualized upper abdomen appears unremarkable. There are acute nondisplaced fractures of the left posterior eighth and ninth ribs. No focal osseous lesion is evident Impression: 1. Acute fractures of the left eighth and ninth ribs 2. No pneumothorax 3. Mild emphysema ACT 112: Positive. There are findings on this exam that require communication between the performing entity and the patient following Patient Test Result Information Act ([place] ACT 112) guidelines. Electronically signed by Tyler Soto 09-19-2025 5:10 PM Pending Studies at Discharge: Yes (final urine culture) Stand[facility]Al[facility] Medications and DC Order Prescriptions: New acetaminophen 325 mg Tablet 650 mg PO Q4H PRN (Reason: pain) Qty: 30 0RF Rx Instructions: Over the counter tamsulosin 0.4 mg Capsule 0.4 mg PO HS Qty: 30 0RF loperamide 2 mg Capsule 2 mg PO Q4H PRN (Reason: loose stool) Qty: 30 0RF Rx Instructions: Over the counter folic acid 1 mg Tablet 1 mg PO QAM Qty: 30 0RF Rx Instructions: Over the counter multivitamin with folic acid [Daily-Margoth (with folic acid)] 400 mcg Tablet 1 tab PO QAM Qty: 30 0RF Rx Instructions: Over the counter thiamine HCl (vitamin B1) 100 mg Tablet 100 mg PO QAM Qty: 30 0RF Rx Instructions: Over the counter cefpodoxime 200 mg tablet 200 mg PO BID Qty: 12 0RF Rx Instructions: must administer with a meal/food ibuprofen [Advil] 200 mg tablet 600 mg PO Q6H PRN (Reason: pain) Qty: 30 0RF Rx Instructions: Over the counter Continued lisinopril 20 mg tablet 20 mg PO QAM clopidogrel 75 mg tablet 75 mg PO QPM aspirin 81 mg Tablet,Delayed Release (Dr/Ec) 81 mg PO QAM hydrochlorothiazide 25 mg tablet 25 mg PO QAM Discharge Orders: Discharge Order (Routine); Ordered 09/21/25 Ordered By: Chen Aguiar Admission Data Admit Date/Time: 09/19/25 18:34 Attending Provider: Chen Aguiar Admit Provider: Chen Aguiar Primary Care Provider: Curtis Blackburn Other Providers: Chen Aguiar Other Interventions: Discharge Summary Assessment (RN) Last Done: 09/21/25 11:44 Hospital Stay Data Consultations 09/19/25 18:09 ED Decision to Admit Stat Diagnostic Imagining Performed 09/19/25 15:53 CT abd pelvis IV con only Stat CT chest diagnostic w con Stat Pending Results Patient Have Any Pending Studies at Discharge: Yes (final urine culture) Discharge Instructions Given to Patient (Per Discharging Provider) Please finish out the course of antibiotics for your urine infection with cefpodoxime twice a day for 6 more days. You were started on a medication for enlarged prostate called tamsulosin. This should help decrease the frequency that you urinate and help you empty your bladder more completely. For your rib fractures and hip pain, you can take Tylenol or ibuprofen as needed for pain and use the incentive spirometer to prevent pneumonia. It is important that you cut down on the amount of beer that you drink on a daily basis to no more than 3-4 beers daily. It is important to take vitamins such as thiamine, folic acid, and a multivitamin when you drink alcohol on a regular basis to keep your body functioning normally. These medications are all over the counter. Total Time Total Time Spent Total Time Spent (In Minutes): 35 min Total Time Includes: Examination of the Patient, Discharge Planning and Medication Reconciliation Coding Level of Care Code 98421 INP/OBS DISCH >30 MIN Diagnoses Rib fractures S22.49XA Hip pain, acute M25.559 UTI (urinary tract infection) N39.0 HTN (hypertension), benign I10
== END 2025-09-21 13:12 | disposition home or self-care (01) | DRG 184 ==
LOC: SUATTDRO → ED 15:38 → INTOOBSV 18:34 → 2S 18:34